=== PATIENT | male | born 1995 | race Caucasian/White ===

== ENCOUNTER 2016-04-30 14:10 | Emergency (ER) | payer OTHER, BC ==
[2016-04-30] MEDS ORDERED: BACITRACIN 0.9 GM PACKET OINT TOPICAL ONE (14:27)
[2016-04-30 14:36] VITALS: RESP 12; TEMP 97
--- NOTE | 2016-05-01 03:49 | PDOC ---
Hand / Wrist Injury HPI - General Chief Complaint: Laceration / Wound Stated Complaint: lac left 5th finger Date Seen by Provider: 04/30/16 Time Seen by Provider: 14:15 Source: POSITIVE: Patient Exam Limitations: POSITIVE: No limitations Nurse's Notes Reviewed & Considered: Yes - History of Present Illness Initial Comments: Patient is a 22 year old male. He works in the kitchen at the hospital. He accidentally lacerated the left small finger near the proximal interphalangeal joint, radial aspect. Tetanus immunization status is current. Have you received a tetanus shot in the past 10 years?: Yes Body Location Affected: REPORTS: Upper Extremity (L) Timing: REPORTS: Abrupt Duration: 1/2 hour Severity: Mild Location at Time of Onset: REPORTS: Work Context: REPORTS: Laceration Location of Injury: REPORTS: Left, 5th Finger Quality: REPORTS: Tenderness Associated Symptoms: DENIES: Arm (R), Arm (L), Tingling Distally, Numbness Distally, Loss of Feeling, Loss of Power, Other Any Prior Injuries Related to Current Complaint?: No - Patient Home Medications Home Medications: Home Medications NK [No Home Medications Reported] 02/25/14 - Patient Allergies Allergies/Adverse Reactions: Allergies Allergy/AdvReac Type Severity Reaction Status Date / Time No Known Drug Allergies Allergy N/A Verified 04/30/16 14:18 Past Medical History - heen HEENT History: Denies History Cardiovascular History: Denies History Respiratory History: Denies History Gastrointestinal History: Denies History Genitourinary History: Denies History Endocrine History: Denies History Musculoskeletal History: Other (please comment) Prosthesis or Implant: No Additional Musculoskeletal History: PREVIOUS SPRAIN RIGHT ANKLE, LEFT WRIST WITH T PLATE, HX FX R WRIST Neurological History: Denies History Blood Disorders: Denies History Psychiatric History: Denies History History of Sexually Transmitted Diseases: No Cancer History: Denies History In Past Year Been Physically Harmed or Verbally Threatened: No History of MDRO: No History of Other Communicable Diseases: No Tobacco Use: Never Smoker Alcohol Use: Rarely Substance Use Type: None Previous Surgical History: Yes Type / Date of Surgery: tl Anesthesia Reactions: No Malignant Hyperthermia: No Significant Family History: No pertinent family hx Past Medical History Reviewed: Reviewed - No Changes ROS - Limitations ROS Limitations: No Limitations Constitution: REPORTS: Denies Symptoms Cardiovascular: REPORTS: Denies Cardiac Symptoms Respiratory: REPORTS: Denies Resp Symptoms Neurological: REPORTS: Denies Neuro Symptoms Gastrointestinal: REPORTS: Denies GI Symptoms Endocrine: REPORTS: Denies Symptoms Musculoskeletal: REPORTS: Recent Injury (As above) Genitourinary: REPORTS: Denies Symptoms Eyes: REPORTS: Denies Symptoms ENT: REPORTS: Denies Symptoms Skin: REPORTS: Other (Tiny, very superficial laceration left small finger as above; no suturing required.) Lympathic: REPORTS: Denies Lympathic Symptoms Immunologic: POSITIVE: Denies Symptoms Psychiatric: POSITIVE: Denies Psych Symptoms Hand / Wrist Injury Exam - General Appearance General Appearance: POSITIVE: Alert, Cooperative, No Acute Distress. NEGATIVE: No Evidence of Trauma (small superficial laceration left small finger as above; see diagram) - Extremities Upper Extremity: POSITIVE: Non-Tender, No Evidence of FB, Normal ROM, Soft Tissue Tenderness, Uninjured Above Wrist, See Diagram. NEGATIVE: Bony Tenderness, Swelling, Ecchymosis, Deformity, Complete Nail Injury, Partial Avulsion, Limited ROM, Snuff Box Position Tender, Axial Thumb Load Pain Neurovascular / Tendon: POSITIVE: Sensation Normal, Motor Normal, No Vascular Compromise, Tendon Function Normal Skin: POSITIVE: Warm, Dry - Neck / Back Neck/Back: POSITIVE: Normal Inspection, Non-Tender, Painless ROM - Respiratory / CVS Respiratory / CVS: POSITIVE: Chest Non Tender, No Ecchymosis, Breath Sounds Normal, No Respiratory Distress, Heart Sounds Normal, Regular Rate/Rhythm Peripheral Pulses: Radial (R): 2+, Radial (L): 2+ Images - Hands Hand: 1 - Small superficial laceration; no sutures required. Procedure - Additional Procedures Additional Procedures: Other (Small superficial laceration left small finger cleansed and bacitracin dressing placed; no suturing required.) Hand / Wrist Injury Progress - Patient's Progress Pain Medication Addressed: POSITIVE: Not Applicable School/Work Release Addressed: POSITIVE: Yes (may return to work today) Re-Examine Time: 14:25 Re-Examine Comment: Wound sterilely cleansed and bacitracin dressing placed Status: POSITIVE: Improved, Re-Examined - Consult Counseled: POSITIVE: Patient, RE: DX, RE: Need for F/U Patient Care Time - Estimated PCT Patient Care Time (In Minutes): 10 Vital Signs - VS Reviewed Vital Signs Reviewed: Yes Discharge Clinical Impression: Laceration Discharge Disposition: Discharged to Home Condition: Fair Patient Instructions Given at Discharge: Laceration (ED) Additional Instructions: You have a small superficial laceration which does not require suturing. Please wash wound well with soap and water daily and place and antibiotic ointment on the wound daily. Keep wound covered at work. Return anytime at first sign of infection, or if condition worsens in any way. Follow Up With: NONE,NONE [Primary Care Provider] - (Instructions as above. Return anytime if condition worsens in any way.)
== END 2016-04-30 14:31 | disposition home or self-care (01) ==
LOC: ER 14:10
DX: S61.217A Laceration without foreign body of left little finger without damage to nail, initial encounter (principal); W26.0XXA Contact with knife, initial encounter; Y92.233 Cafeteria of hospital as the place of occurrence of the external cause; Y99.0 Civilian activity done for income or pay
CPT/HCPCS: 99282